=== PATIENT | female | born 1965 | race Caucasian/White ===

== ENCOUNTER 2017-12-13 19:11 | Emergency (ER) | payer OTHER ==
[2017-12-13] MEDS ORDERED: TDAP ADULT 0.5 ML INJ (BOOSTRIX) IM ONE (20:00)
--- NOTE | 2017-12-13 21:24 | EDPHY ---
H & P Smoking Status: Never smoked Time Seen by Provider: 12/13/17 19:35 HPI/ROS: CHIEF COMPLAINT: Crush injury left middle finger HISTORY OF PRESENT ILLNESS: 52-year-old female presents emergency department with a crush injury to her left middle finger after she crushed her finger in a door. The incident happened just prior to arrival. She is right-hand dominant. She is unsure of her last tetanus shot. She describes the pain as severe. She does feel that the very distal tip of her fingers numb. ROS: Denies retained foreign body or injury to the other fingers. (Brooke Muñoz) Past Medical/Surgical History: Appendectomy, tonsillectomy, DVT (Brooke Muñoz) Social History: (Brooke Muñoz) Physical Exam: On examination patient has a 2 cm flap laceration to the distal, palmar aspect of the left middle finger extending into the nail bed. The laceration does not extend into the D IP joint. The other fingers do not appear injured. She has normal sensation to light touch with very slightly decreased sensation to the very distal, palmar aspect of the left 3rd finger. The other fingers do not appear injured. Full range of motion of the other fingers. Slow active bleeding noted from the wound. (Brooke Muñoz) Constitutional: Initial Vital Signs Temperature (C) 37.2 C 12/13/17 19:15 Heart Rate 73 12/13/17 19:15 Respiratory Rate 16 12/13/17 19:15 Blood Pressure 160/109 H 12/13/17 19:15 O2 Sat (%) 97 12/13/17 19:15 O2 Delivery Mode Room Air Allergies/Adverse Reactions: No Known Allergies Allergy (Unverified 12/13/17 19:19) Home Medications: Medication Instructions Recorded Cephalexin [Keflex] 500 mg PO QID #28 cap 12/13/17 MDM/Departure - MDM Procedures: Laceration repair. Verbal consent was obtained from the patient. The 2 cm flap laceration on the left middle finger was anesthetized using digital block using 1% lidocaine with without epinephrine 0.5% bupivacaine without epinephrine. The wound was irrigated with saline, draped and explored to its base with a gloved finger. There were no deep structures involved. No tendon injury was identified. The wound was repaired with 4 0 Ethilon, 5 sutures. The wound repair was simple. The procedure was performed by myself. (Brooke Muñoz) Medications Given: Discontinued Medications Cephalexin (Keflex 500 Mg Prepack#4) 1 btl TAKEHOME EDNOW ONE PRN Reason: Protocol Stop: 12/13/17 21:26 Last Admin: 12/13/17 21:39 Dose: 1 btl Diphtheria/Tetanus/Acell Pertussis (Boostrix) 0.5 ml IM .ONCE ONE Stop: 12/13/17 20:01 Last Admin: 12/13/17 20:37 Dose: 0.5 ml ED Course/Re-evaluation: 52-year-old female presents to the emergency department with left middle finger injury. The wound was repaired, see procedure note. X-rays reveal small tuft fracture to the distal phalanx. She will be started on antibiotics, placed in a splint and given orthopedic hand surgical referral. (Brooke Muñoz) The patient was evaluated and managed by the Physician [facility] Professional. My co- signature indicates that I have reviewed this chart and I agree with the findings and plan of care as documented. I am the secondary supervising physician. (Jo Ellis) - Depart Disposition: Home, Routine, Self-Care Clinical Impression: Fracture of distal phalanx of finger Qualifiers: Encounter type: initial encounter Finger: ring finger Fracture type: open Fracture alignment: displaced Laterality: left Qualified Code(s): S62.635B - Displaced fracture of distal phalanx of left ring finger, initial encounter for open fracture Condition: Good Instructions: Cephalexin (By mouth), Care For Your Stitches (ED), Laceration ( ED), Finger Fracture (ED), Acute Wounds (ED) Additional Instructions: Wound Care Follow-Up: Removal of sutures in 10 days. Suture removal is complimentary in uncomplicated cases. Infection or abnormal findings would require reevaluation by the MD. In that case, you may be billed. Keflex 500 mg 4 times daily for 1 week to prevent infection. Ibuprofen 600 mg every 8 hr as needed for pain. Return to the emergency department if you notice any signs or symptoms of infection such as redness, swelling, increased pain, fever, purulent drainage. You were given a tetanus shot today in the emergency department. Prescriptions: Cephalexin [Keflex] 500 mg PO QID #28 cap Referrals: Rachid Mendez MD [Medical Doctor] - 2-3 days without fail (Hand surgeon on- call)
[2017-12-13] MEDS ORDERED: CEPHALEXIN 500MG PREPACK#4 BTL TAKEHOME ONE (21:25)
[2017-12-13 21:42] VITALS: BP 140/82
== END 2017-12-13 21:50 | disposition home or self-care (01) ==
PROC: 0HQGXZZ Repair Left Hand Skin, External Approach (ICD-10-PCS; principal; 2017-12-13)
DX: S62.635B Displaced fracture of distal phalanx of left ring finger, initial encounter for open fracture (principal); W23.1XXA Caught, crushed, jammed, or pinched between stationary objects, initial encounter; Y99.8 Other external cause status; Z23 Encounter for immunization
CPT/HCPCS: L3925